=== PATIENT | male | born 1995 | race Caucasian/White ===

== ENCOUNTER 2018-08-28 23:19 | Emergency (ER) | payer SELFPAY ==
[~2018-08-28] VITALS: Ht 177.8 cm; Wt 77.1 kg
--- NOTE | 2018-08-29 00:15 | NUR ---
DOWNTIME ORDER FAXED CT ORDER RADIOLOGY C-SPINE AND LUMBAR SPINE WITHOUT CONTRAST.
[2018-08-29] MEDS ORDERED: CYCLOBENZAPRINE 10 MG TABLET ONE (00:16)
[2018-08-29] MEDS ORDERED: IBUPROFEN 600 MG TABLET PO ONE ×2 (00:16→00:30)
--- NOTE | 2018-08-29 00:23 | NUR ---
PT REC'D MEDICATION ORDERED. DOWNTIME ORDER OF 600MG IBUPROFEN PO X 1 NOW AND 10MG FLEXERIL PO X1 NOW.
--- NOTE | 2018-08-29 00:25 | NUR ---
PT LEFT VIA GURNEY TO CT.
[2018-08-29] MEDS ORDERED: CYCLOBENZAPRINE 10 MG TABLET PO ONE (00:30)
--- NOTE | 2018-08-29 01:49 | NUR ---
DR RON SPOKE TO THE PT. Patient discharged to home in stable condition. Written and verbal after care instructions given. Patient verbalizes understanding of instruction AND RX. PT WAS INSTRUCTED NOT TO DRIVE. PT'S FAMILY IS DRIVING PT HOME. VSS. NAD NOTED. PT AMBULATED OUT WITH A STEADY GAIT.
[2018-08-29 01:51] VITALS: BP 132/85
== END 2018-08-29 01:52 | disposition home or self-care (01) ==
LOC: ER 23:23
DX: M54.5 Low back pain (principal); F17.210 Nicotine dependence, cigarettes, uncomplicated; V43.53XA Car driver injured in collision with pick-up truck in traffic accident, initial encounter; Y93.89 Activity, other specified; Y92.413 State road as the place of occurrence of the external cause; Y99.8 Other external cause status
CPT/HCPCS: 72125-TC; 72131-TC